=== PATIENT | male | born 1955 | race Caucasian/White ===

== ENCOUNTER 2018-12-17 16:59 | Emergency (ER) | payer SELFPAY ==
[~2018-12-17] VITALS: Ht 177.8 cm; Wt 72.0 kg
[2018-12-17] MEDS ORDERED: normal saline 1000ML IV soln IVB ONE (17:05)
--- NOTE | 2018-12-17 17:10 | NUR ---
PT SLEEPING, AROUSEABLE TO LIGHT STIMULI BUT ATTEMPTED TO HIT ME, SLURRED SPEECH, SECURITY AT BEDSIDE TO ASSIST, PT WAS FOUND DOWN OUTSIDE, +ETOH, OLD WOUND TO POSTERIOR HEAD AND LEFT ELBOW, INCONTINENT OF URINE, PT IS ORIENTED TO PERSON, AND PLACE
--- NOTE | 2018-12-17 17:25 | NUR ---
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
--- NOTE | 2018-12-17 17:28 | NUR ---
2ND LITER NS INFUSING
[2018-12-17 17:44] LABS: BASOPHILS % (AUTO) 0.5 % (0-1); EOSINOPHILS # (AUTO) 0.1 X10'3 (0-0.9); EOSINOPHILS % (AUTO) 0.8 % (0-6); HEMATOCRIT 36.7 % (42.0-52.0); HEMOGLOBIN 12.6 g/dl (14.0-17.9); LYMPHOCYTES % (AUTO) 28.6 % (21-51); MEAN CORPUSCULAR HEMOGLOBIN 30.9 PG (27.0-31.0); MEAN CORPUSCULAR HGB CONC 34.4 g/dL (33.0-36.5); MEAN CORPUSCULAR VOLUME 89.7 FL (78-98); MEAN PLATELET VOLUME 8.4 FL (7.4-10.4); MONOCYTES % (AUTO) 9.4 % (2-12); NEUTROPHILS # (AUTO) 6.3 X10'3 (1.8-7.7); NEUTROPHILS % (AUTO) 60.7 % (42-75); PLATELET COUNT 134 X10'3 (140-440); RED BLOOD COUNT 4.09 X10'6 (4.70-6.10); RED CELL DISTRIBUTION WIDTH 13.6 % (11.5-14.5); WHITE BLOOD COUNT 10.4 X10'3 (4.5-11.0)
[2018-12-17 17:54] LABS: LACTIC SEPSIS 2.7 MMOL/L (0.4-2.0)
[2018-12-17 18:02] LABS: ALANINE AMINOTRANSFERASE 24 U/L (12-78); ALBUMIN 3.4 G/DL (3.4-5.0); ALKALINE PHOSPHATASE 93 IU/L (46-116); ANION GAP 13 (8-16); ASPARTATE AMINO TRANSFERASE 35 U/L (10-37); BILIRUBIN,TOTAL 0.4 MG/DL (0.1-1.0); BLOOD UREA NITROGEN 15 MG/DL (7-18); BUN/CREATININE RATIO 20.3 (5.4-32.0); CALCIUM 7.9 MG/DL (8.5-10.1); CHLORIDE 106 MMOL/L (99-107); CREATININE 0.74 MG/DL (0.60-1.10); GLUCOSE 91 MG/DL (70-104); POTASSIUM 3.8 MMOL/L (3.5-5.1); SODIUM 142 MMOL/L (135-145); TOTAL CARBON DIOXIDE 22.9 MMOL/L (24-32); TOTAL PROTEIN 6.7 G/DL (6.4-8.2); eGFR > 90 ML/MIN
[2018-12-17 18:03] LABS: ETHANOL 0.303 GM/DL (0.0-0.010)
--- NOTE | 2018-12-17 18:09 | NUR ---
SECURITY ESCORTED PT TO CT, PT REMAINS QUIET, PT USED URINAL, 500ML OF URINE, SAMPLE SENT TO LAB, 3RD LITER NS INFUSING W/O
--- NOTE | 2018-12-17 18:19 | NUR ---
PT PULLED IV OUT, CANNULA INTACT, WONT KEEP MONITOR ON, PT DID SAY HIS NAME WAS HONEY SWAN,
--- NOTE | 2018-12-17 18:20 | NUR ---
PRIOR TO PULLING IV OUT PT RECEIVED 300ML OF NS OF THE 3RD LITER
[2018-12-17 19:16] LABS: CLARITY,URINE CLEAR (Clear); COLOR,URINE YELLOW (Yellow); GLUCOSE, URINE NEGATIVE (Neg); KETONES,URINE NEGATIVE (Neg); LEUKOCYTE ESTERASE ,URINE NEGATIVE (Neg); NITRITES, URINE NEGATIVE (Neg); OCCULT BLOOD,URINE NEGATIVE (Neg); PROTEIN,URINE NEGATIVE (Neg); UROBILINOGEN,URINE 0.2 E.U/dL (0.2-1.0)
[2018-12-17 19:18] LABS: UA COLLECTION TYPE URINAL
[2018-12-17 19:25] LABS: URINE AMPHETAMINE SCREEN NEGATIVE (Neg); URINE BARBITUATE SCREEN NEGATIVE (Neg); URINE BENZODIAZEPINES SCREEN POSITIVE (Neg); URINE OPIATE SCREEN POSITIVE (Neg)
[2018-12-17 19:34] LABS: URINE CANNABINOID SCREEN NEGATIVE (Neg); URINE COCAINE SCREEN NEGATIVE (Neg); URINE METHADONE SCREEN NEGATIVE (Neg); URINE PHENCYCLIDINE SCREEN NEGATIVE (Neg)
--- NOTE | 2018-12-17 19:49 | NUR ---
2 HR LACTIC DRAWN
--- NOTE | 2018-12-17 19:52 | NUR ---
PT AWAITING 2 HR LACTIC RESULT, THEN DC READY. PT REPORTS HIS MOTHER NIKITA TRENT, [phone], CAN PICK HIM UP FOR DISCHARGE. Addendum: 12/17/18 at 1956 by BASIL THE NUMBER [phone] ABOVE IS DOSCONNECTED.
--- NOTE | 2018-12-17 20:08 | NUR ---
NUMBER PT GAVE FOR HIS MOTHER HAS BEEN DISCONNECTED, GAVE PT PHONE TO TRY AND CALL FOR A RIDE
[2018-12-17 20:09] VITALS: BP 118/78
--- NOTE | 2018-12-17 20:27 | NUR ---
PT SAID HE CONTACTED HIS MOTHER AND SHE WOULD BE HERE IN 10 MINUTES, Sandro COOPER AWARE AND PT IS DC'D HOME, AMB WITH STEADY GAIT TO LOBBY
== END 2018-12-17 20:29 | disposition home or self-care (01) ==
LOC: EDBD 17:00 → ER 17:00
DX: E86.0 Dehydration (principal); F10.129 Alcohol abuse with intoxication, unspecified; F11.920 Opioid use, unspecified with intoxication, uncomplicated; R22.0 Localized swelling, mass and lump, head; Y90.9 Presence of alcohol in blood, level not specified
CPT/HCPCS: 36415; 70450; 71045; 80053; 80305; 80320; 81003; 82140; 83605; 85025; 85610; 87040; 93005; 96360; 96361; 99284; J7030